=== PATIENT | female | born 1950 | race American Indian/Alaskan Native ===

== ENCOUNTER 2017-02-28 13:14 | Outpatient (CLI) | payer MEDICARE ==
[2017-02-28 13:48] LABS: Basophils % (Auto) 0.5 % (0.0-1.8); Eosinophils % (Auto) 4.8 % (0.0-4.3); Hematocrit 37.9 % (30.3-42.9); Hemoglobin 12.3 gm/dl (10.1-14.3); Mean Corpuscular HGB Conc 33 % (30-34); Mean Corpuscular Hemoglobin 32 pg (28-32); Mean Corpuscular Volume 99 fl (79-97); Red Blood Count 3.82 M/mm3 (3.65-5.03); Red Cell Distribution Width 13.2 % (13.2-15.2); White Blood Count 5.1 K/mm3 (4.5-11.0)
[2017-02-28 13:50] LABS: Alanine Aminotransferase 9 units/L (7-56); Albumin 3.4 g/dL (3.9-5); Albumin/Globulin Ratio 0.9 %; Alkaline Phosphatase 98 units/L (35-129); Anion Gap 17 mmol/L; BUN/Creatinine Ratio 46.66; Bilirubin,Total 0.3 mg/dL (0.1-1.2); Blood Urea Nitrogen 28 mg/dL (7-17); Carbon Dioxide 26 mmol/L (22-30); Chloride 108.5 mmol/L (98-107); Glucose 202 mg/dL (65-100); Phosphorous 3.3 mg/dL (2.5-4.5); Potassium 3.4 mmol/L (3.6-5.0); Sodium 148 mmol/L (137-145); Total Protein 7.3 g/dL (6.3-8.2); Triglycerides 94 mg/dL (2-149)
[2017-02-28 14:54] LABS: Platelet Count 119 K/mm3 (140-440)
== END 2017-02-28 13:15 | disposition home or self-care (01) ==
LOC: LABHHL 13:14
DX: K31.1 Adult hypertrophic pyloric stenosis (principal)
CPT/HCPCS: 36415; 80053; 83735; 84100; 84478; 85025